=== PATIENT | male | born 1950 | race Caucasian/White ===

== ENCOUNTER → 2017-10-27 | Outpatient (REF) | payer BC, MEDICARE ==
[2017-10-27 14:29] LABS: APPEARANCE, URINE CLEAR (CLEAR); BACTERIA, URINE AUTO NEGATIVE (NEGATIVE); BILIRUBIN, URINE AUTO NEGATIVE (NEGATIVE); BLOOD, URINE BLOOD NEGATIVE (NEGATIVE); COLOR, URINE STRAW (YELLOW); GLUCOSE, URINE (UA) AUTO NEGATIVE (NEGATIVE); KETONE, URINE AUTO NEGATIVE (NEGATIVE); LEUKOCYTE ESTERASE, URINE AUTO NEGATIVE (NEGATIVE); MUCUS, URINE SMALL (NEGATIVE); NITRITE, URINE AUTO NEGATIVE (NEGATIVE); PROTEIN, URINE AUTO NEGATIVE (NEGATIVE); RBC, URINE AUTO 0 /HPF (0-3); SPECIFIC GRAVITY URINE AUTO 1.006 (1.002-1.035); SQUAMOUS EPITHELIAL CELL UR AU 0 /HPF (0-6); UROBILINOGEN, URINE AUTO 0.2 mg/dL (0.0-2.0); WBC, URINE AUTO 1 /HPF (0-3)
== END ==
LOC: M SMT 13:36
DX: N40.0 Benign prostatic hyperplasia without lower urinary tract symptoms (principal)
CPT/HCPCS: 81001

== ENCOUNTER → 2020-08-24 | Outpatient (CLI) | payer MEDICARE, BC ==
[2020-08-24 15:30] LABS: BASO % 0.5 % (0.0-1.0); EOS # 0.1 10^3/uL (0.0-0.5); EOS % 0.8 % (0.0-3.0); HEMATOCRIT 45.2 % (42.0-52.0); HEMOGLOBIN 14.9 g/dl (13.5-17.5); LYMPH # 1.4 10^3/uL (1.5-5.0); LYMPH % 21.3 % (24.0-44.0); MEAN CORPUSCULAR HEMOGLOBIN 28.1 pg (27.0-33.0); MEAN CORPUSCULAR VOLUME 85.1 fl (80.0-96.0); MONO # 0.5 10^3/uL (0.0-0.8); MONO % 8.1 % (0.0-5.0); NEUTROPHILS # 4.5 10^3/uL (1.5-8.5); PLATELET COUNT, AUTOMATED 133 10^3/uL (150-450); RED BLOOD COUNT 5.31 10^6/uL (4.30-6.10); WHITE BLOOD COUNT 6.5 10^3/uL (4.0-10.0)
[2020-08-24 15:56] LABS: ALBUMIN 3.7 GM/DL (3.2-5.2); ALT/SGPT 34 U/L (12-78); BILIRUBIN,TOTAL 0.5 MG/DL (0.2-1.0); BLOOD UREA NITROGEN 21 MG/DL (7-18); CALCIUM LEVEL 8.9 MG/DL (8.8-10.2); CARBON DIOXIDE LEVEL 29 MEQ/L (21-32); CHLORIDE LEVEL 108 MEQ/L (98-107); CREATININE FOR GFR 1.18 MG/DL (0.70-1.30); GLOMERULAR FILTRATION RATE > 60.0 (>42); GLUCOSE, FASTING 89 MG/DL (70-100); POTASSIUM SERUM 3.9 MEQ/L (3.5-5.1); SODIUM LEVEL 144 MEQ/L (136-145); TOTAL PROTEIN 7.1 GM/DL (6.4-8.2)
== END ==
LOC: M LAB 14:58
PROVIDERS: ATTEND Internal Medicine
DX: F03.90 Unspecified dementia, unspecified severity, without behavioral disturbance, psychotic disturbance, mood disturbance, and anxiety (principal)

== ENCOUNTER → 2020-11-25 | Outpatient (REF) | payer MEDICARE, BC ==
[2020-11-25 18:14] LABS: APPEARANCE, URINE CLEAR (CLEAR); BACTERIA, URINE AUTO NEGATIVE (NEGATIVE); BILIRUBIN, URINE AUTO NEGATIVE (NEGATIVE); BLOOD, URINE BLOOD NEGATIVE (NEGATIVE); COLOR, URINE YELLOW (YELLOW); GLUCOSE, URINE (UA) AUTO NEGATIVE (NEGATIVE); KETONE, URINE AUTO NEGATIVE (NEGATIVE); LEUKOCYTE ESTERASE, URINE AUTO NEGATIVE (NEGATIVE); MUCUS, URINE SMALL (NEGATIVE); NITRITE, URINE AUTO NEGATIVE (NEGATIVE); PROTEIN, URINE AUTO NEGATIVE (NEGATIVE); RBC, URINE AUTO 1 /HPF (0-3); SPECIFIC GRAVITY URINE AUTO 1.015 (1.002-1.035); SQUAMOUS EPITHELIAL CELL UR AU 0 /HPF (0-6); UROBILINOGEN, URINE AUTO 0.2 mg/dL (0.0-2.0); WBC, URINE AUTO 0 /HPF (0-3)
== END ==
LOC: M SMT 17:46
PROVIDERS: ATTEND Nurse Practitioner Family
DX: R32 Unspecified urinary incontinence (principal)
CPT/HCPCS: 51798; 81001; 87086; G0463

== ENCOUNTER → 2020-12-07 | Outpatient (CLI) | payer MEDICARE, BC ==
--- NOTE | 2020-12-07 11:51 | REP ---
INDICATION: BPH PROSTATE VOLUME. COMPARISON: None TECHNIQUE: Transvesical imaging FINDINGS: There is no significant mucosal abnormality or evidence of a urinary bladder wall mass. Doppler shows uro jet phenomena bilaterally. The prevoid urinary bladder volume calculation is 232.7 cc. No postvoid urinary bladder volume calculation was obtained by the technologist. The technologist measured the prostate gland transvesically and came up with 2.6 x 2.8 x 2.3 cm IMPRESSION: As above <Electronically signed by Dilan Shellye > 12/07/20 [id number]
== END ==
LOC: M RAD 11:06
PROVIDERS: ATTEND Nurse Practitioner Family
DX: N40.0 Benign prostatic hyperplasia without lower urinary tract symptoms (principal)

== ENCOUNTER → 2021-01-18 | Outpatient (CLI) | payer MEDICARE, BC ==
--- NOTE | 2021-01-18 10:24 | REPVR ---
PROCEDURE INFORMATION: Exam: CT Head Without Contrast Exam date and time: 01/18/2021 9:31 AM Age: 70 years old Clinical indication: Altered mental status/memory loss; Additional info: Dementia TECHNIQUE: Imaging protocol: Computed tomography of the head without contrast. Radiation optimization: All CT scans at this facility use at least one of these dose optimization techniques: automated exposure control; mA and/or kV adjustment per patient size (includes targeted exams where dose is matched to clinical indication); or iterative reconstruction. COMPARISON: No relevant prior studies available. FINDINGS: Brain: There is no acute intracranial hemorrhage or mass effect. Mild diffuse volume loss is within the range of normal for patient age. There are small vessel ischemic changes within the periventricular and subcortical white matter, but the normal may/white matter delineation is maintained. Cerebral ventricles: No ventriculomegaly. Paranasal sinuses: Visualized sinuses are unremarkable. No fluid levels. Mastoid air cells: Visualized mastoid air cells are well aerated. Bones/joints: Unremarkable. No acute fracture. Soft tissues: Unremarkable. IMPRESSION: No acute hemorrhage or edema. Electronically signed by: Yola Mendoza On 01/18/2021 10:24:11 AM
== END ==
LOC: M RAD 09:09
DX: F03.90 Unspecified dementia, unspecified severity, without behavioral disturbance, psychotic disturbance, mood disturbance, and anxiety (principal)

== ENCOUNTER 2022-05-17 16:53 | Inpatient (IN) | payer MEDICARE, BC ==
[~2022-05-17] VITALS: Ht 170.2 cm; Wt 75.3 kg
[2022-05-17] MEDS: DONEPEZIL 5 MG TAB PO SCH (03:40)
[2022-05-17] MEDS ORDERED: FINA5TAB2 PO (17:14)
[2022-05-17] MEDS ORDERED: TAMS1CAP17 PO (17:14)
[2022-05-17] MEDS ORDERED: DONE10TA90 PO (17:14)
[2022-05-17] MEDS ORDERED: MEMA28CA12 PO (17:14)
[2022-05-17] MEDS ORDERED: MYRB50TA PO (17:14)
[2022-05-17] MEDS ORDERED: ZOLO50TA PO (17:14)
[2022-05-17 17:56] LABS: BASO % 0.3 % (0.0-1.0); EOS % 0.5 % (0.0-3.0); HEMOGLOBIN 12.8 g/dl (13.5-17.5); LYMPH # 1.1 10^3/uL (1.5-5.0); LYMPH % 12.4 % (24.0-44.0); MEAN CORPUSCULAR HEMOGLOBIN 28.6 pg (27.0-33.0); MEAN CORPUSCULAR HGB CONC 32.8 g/dl (32.0-36.5); MEAN CORPUSCULAR VOLUME 87.2 fl (80.0-96.0); MONO # 0.6 10^3/uL (0.0-0.8); MONO % 7.2 % (2.0-8.0); NEUTROPHILS # 6.8 10^3/uL (1.5-8.5); NEUTROPHILS % 78.3 % (36.0-66.0); PLATELET COUNT, AUTOMATED 200 10^3/uL (150-450); RED BLOOD COUNT 4.47 10^6/uL (4.30-6.10); WHITE BLOOD COUNT 8.6 10^3/uL (4.0-10.0)
[2022-05-17 18:11] LABS: VENOUS BASE EXCESS 3.2 (-2.0-2.0); VENOUS HCO3 29.3 MEQ/L (23.0-27.0); VENOUS PARTIAL PRESSURE CO2 50.5 mmHg (38.0-50.0); VENOUS PARTIAL PRESSURE O2 36.8 mmHg (30.0-50.0); VENOUS PH 7.382 UNITS (7.330-7.430); VENOUS STANDARD HCO3 26.6 MEQ/L; VENOUS TOTAL CO2 30.9 MEQ/L (24.0-28.0)
[2022-05-17 18:33] LABS: ALBUMIN 2.8 GM/DL (3.2-5.2); ALT/SGPT 78 U/L (12-78); BILIRUBIN,DIRECT 0.2 MG/DL (0.0-0.2); BILIRUBIN,TOTAL 0.5 MG/DL (0.2-1.0); BLOOD UREA NITROGEN 19 MG/DL (7-18); CALCIUM LEVEL 8.6 MG/DL (8.8-10.2); CARBON DIOXIDE LEVEL 30 MEQ/L (21-32); CHLORIDE LEVEL 107 MEQ/L (98-107); CREATININE FOR GFR 1.02 MG/DL (0.70-1.30); GLOMERULAR FILTRATION RATE > 60.0 (>42); GLUCOSE, FASTING 105 MG/DL (70-100); POTASSIUM SERUM 3.9 MEQ/L (3.5-5.1); SODIUM LEVEL 143 MEQ/L (136-145); TOTAL PROTEIN 6.3 GM/DL (6.4-8.2)
[2022-05-17 19:29] LABS: OSMOLALITY SERUM 301 MOSM/KG (280-301)
[2022-05-17] MEDS ORDERED: VITA100093 PO (20:04)
[2022-05-17] MEDS ORDERED: ZOLO100T PO (20:04)
[2022-05-17] MEDS ORDERED: HOME MED LIST COMPLETE! XX SCH (20:10)
[2022-05-17 20:16] LABS: ACETAMINOPHEN LEVEL < 2.0 UG/ML (10.0-30.0); ETHYL ALCOHOL (ETHANOL) < 0.003 % (0.000-0.010); SALICYLATE LEVEL < 1.7 MG/DL (5.0-30.0)
[2022-05-17 20:27] LABS: AMPHETAMINES LEVEL URINE NEGATIVE (NEGATIVE); BARBITURATES URINE NEGATIVE (NEGATIVE); BENZODIAZEPINES URINE NEGATIVE (NEGATIVE); CANNABINOIDS URINE NEGATIVE (NEGATIVE); COCAINE METABOLITE URINE NEGATIVE (NEGATIVE); METHADONE URINE NEGATIVE (NEGATIVE); OPIATES URINE NEGATIVE (NEGATIVE); PHENCYCLIDINE URINE NEGATIVE (NEGATIVE)
[2022-05-17 20:37] LABS: RSV AMPLIFICATION NEGATIVE (NEGATIVE)
[2022-05-18] MEDS: SERTRALINE 100 MG TAB PO SCH ×2 (04:11→21:32)
[2022-05-18] MEDS: TAMSULOSIN 0.4 MG CAP PO SCH ×2 (04:11→21:31)
[2022-05-18 08:18] LABS: HEMATOCRIT 39.9 % (42.0-52.0); HEMOGLOBIN 12.8 g/dl (13.5-17.5); MEAN CORPUSCULAR HEMOGLOBIN 27.9 pg (27.0-33.0); MEAN CORPUSCULAR HGB CONC 32.1 g/dl (32.0-36.5); MEAN CORPUSCULAR VOLUME 86.9 fl (80.0-96.0); PLATELET COUNT, AUTOMATED 194 10^3/uL (150-450); RED BLOOD COUNT 4.59 10^6/uL (4.30-6.10); WHITE BLOOD COUNT 7.5 10^3/uL (4.0-10.0)
[2022-05-18 08:57] LABS: ALBUMIN 2.7 GM/DL (3.2-5.2); ALT/SGPT 70 U/L (12-78); BILIRUBIN,TOTAL 0.7 MG/DL (0.2-1.0); BLOOD UREA NITROGEN 14 MG/DL (7-18); CARBON DIOXIDE LEVEL 28 MEQ/L (21-32); CHLORIDE LEVEL 105 MEQ/L (98-107); CREATININE FOR GFR 0.83 MG/DL (0.70-1.30); GLOMERULAR FILTRATION RATE > 60.0 (>42); GLUCOSE, FASTING 105 MG/DL (70-100); POTASSIUM SERUM 3.8 MEQ/L (3.5-5.1); SODIUM LEVEL 140 MEQ/L (136-145); TOTAL PROTEIN 6.3 GM/DL (6.4-8.2)
[2022-05-18] MEDS: MEMANTINE 5MG TABLET (NAMENDA) PO SCH ×2 (09:00→21:32)
[2022-05-18 16:00] VITALS: BP 132/76
[2022-05-18] MEDS: RAMELTEON 8 MG TAB (ROZEREM) PO PRN (21:31)
[2022-05-18] MEDS: oxyBUTYnin *DITROPAN XL* 5 MG TABCR PO SCH (21:31)
[2022-05-18] MEDS: VITAMIN D 1,000 INTERNATIONAL UNITS TABLET PO SCH (21:32)
[2022-05-18] MEDS: DONEPEZIL 5 MG TAB PO SCH (21:32)
[2022-05-18] MEDS: FINASTERIDE 5MG TAB PO SCH (21:32)
[2022-05-19 06:00] VITALS: BP 131/70
[2022-05-19 06:56] LABS: BASO % 0.4 % (0.0-1.0); EOS # 0.1 10^3/uL (0.0-0.5); EOS % 0.8 % (0.0-3.0); HEMATOCRIT 37.1 % (42.0-52.0); LYMPH # 1.3 10^3/uL (1.5-5.0); LYMPH % 16.3 % (24.0-44.0); MEAN CORPUSCULAR HEMOGLOBIN 28.3 pg (27.0-33.0); MEAN CORPUSCULAR HGB CONC 32.3 g/dl (32.0-36.5); MEAN CORPUSCULAR VOLUME 87.5 fl (80.0-96.0); MONO # 0.5 10^3/uL (0.0-0.8); MONO % 6.4 % (2.0-8.0); NEUTROPHILS % 74.8 % (36.0-66.0); PLATELET COUNT, AUTOMATED 194 10^3/uL (150-450); RED BLOOD COUNT 4.24 10^6/uL (4.30-6.10)
[2022-05-19 07:38] LABS: BLOOD UREA NITROGEN 16 MG/DL (7-18); CALCIUM LEVEL 8.5 MG/DL (8.8-10.2); CARBON DIOXIDE LEVEL 30 MEQ/L (21-32); CHLORIDE LEVEL 106 MEQ/L (98-107); CREATININE FOR GFR 1.02 MG/DL (0.70-1.30); GLOMERULAR FILTRATION RATE > 60.0 (>42); GLUCOSE, FASTING 106 MG/DL (70-100); SODIUM LEVEL 141 MEQ/L (136-145)
[2022-05-19] MEDS: MEMANTINE 5MG TABLET (NAMENDA) PO SCH ×2 (09:08→20:47)
[2022-05-19] MEDS: RAMELTEON 8 MG TAB (ROZEREM) PO PRN (20:47)
[2022-05-19] MEDS: oxyBUTYnin *DITROPAN XL* 5 MG TABCR PO SCH (20:47)
[2022-05-19] MEDS: DONEPEZIL 5 MG TAB PO SCH (20:47)
[2022-05-19] MEDS: SERTRALINE 100 MG TAB PO SCH (20:48)
[2022-05-19] MEDS: TAMSULOSIN 0.4 MG CAP PO SCH (20:48)
[2022-05-19] MEDS: VITAMIN D 1,000 INTERNATIONAL UNITS TABLET PO SCH (20:48)
[2022-05-19] MEDS: FINASTERIDE 5MG TAB PO SCH (20:48)
[2022-05-19 22:00] VITALS: BP 133/70
[2022-05-20 06:00] VITALS: BP 131/74
[2022-05-20] MEDS: MEMANTINE 5MG TABLET (NAMENDA) PO SCH ×2 (08:33→20:28)
[2022-05-20] MEDS: DONEPEZIL 5 MG TAB PO SCH (20:28)
[2022-05-20] MEDS: FINASTERIDE 5MG TAB PO SCH (20:28)
[2022-05-20] MEDS: RAMELTEON 8 MG TAB (ROZEREM) PO PRN (20:28)
[2022-05-20] MEDS: TAMSULOSIN 0.4 MG CAP PO SCH (20:28)
[2022-05-20] MEDS: SERTRALINE 100 MG TAB PO SCH (20:28)
[2022-05-20] MEDS: VITAMIN D 1,000 INTERNATIONAL UNITS TABLET PO SCH (20:29)
[2022-05-20] MEDS: oxyBUTYnin *DITROPAN XL* 5 MG TABCR PO SCH (20:29)
[2022-05-20 21:25] VITALS: BP 142/72
[2022-05-21] MEDS ORDERED: PILL CUTTER 1 EACH XX PRN (01:40)
[2022-05-21] MEDS ORDERED: risperiDONE 0.5 MG TAB PO ONE (02:00)
[2022-05-21] MEDS: ACETAMINOPHEN TAB 650MG DOSE (2X325MG) PO PRN ×3 (03:00→20:31)
[2022-05-21 06:00] VITALS: BP 139/72
[2022-05-21] MEDS: MEMANTINE 5MG TABLET (NAMENDA) PO SCH ×2 (09:22→20:30)
[2022-05-21 15:26] VITALS: BP 141/74
[2022-05-21] MEDS: RAMELTEON 8 MG TAB (ROZEREM) PO PRN (20:30)
[2022-05-21] MEDS: DONEPEZIL 5 MG TAB PO SCH (20:30)
[2022-05-21] MEDS: SERTRALINE 100 MG TAB PO SCH (20:30)
[2022-05-21] MEDS: FINASTERIDE 5MG TAB PO SCH (20:30)
[2022-05-21] MEDS: TAMSULOSIN 0.4 MG CAP PO SCH (20:31)
[2022-05-21] MEDS: oxyBUTYnin *DITROPAN XL* 5 MG TABCR PO SCH (20:31)
[2022-05-21] MEDS: VITAMIN D 1,000 INTERNATIONAL UNITS TABLET PO SCH (20:31)
[2022-05-21 22:00] VITALS: BP 141/72
[2022-05-22 02:00] VITALS: BP 137/70
[2022-05-22] MEDS ORDERED: risperiDONE 0.5 MG TAB PO ONE (02:00)
[2022-05-22 06:00] VITALS: BP 121/77
[2022-05-22] MEDS: ACETAMINOPHEN TAB 650MG DOSE (2X325MG) PO PRN (06:56)
[2022-05-22] MEDS: MEMANTINE 5MG TABLET (NAMENDA) PO SCH ×2 (09:24→20:54)
[2022-05-22] MEDS: MIRALAX *UNIT DOSE* 17GM PACKET PO PRN ×2 (09:25→20:55)
[2022-05-22] MEDS: DOCUSATE SODIUM 100MG CAPSULE PO PRN ×2 (11:28→20:54)
[2022-05-22] MEDS: SENOKOT S TAB PO PRN ×2 (11:28→20:55)
[2022-05-22] MEDS: RAMELTEON 8 MG TAB (ROZEREM) PO PRN (20:54)
[2022-05-22] MEDS: DONEPEZIL 5 MG TAB PO SCH (20:54)
[2022-05-22] MEDS: SERTRALINE 100 MG TAB PO SCH (20:54)
[2022-05-22] MEDS: oxyBUTYnin *DITROPAN XL* 5 MG TABCR PO SCH (20:55)
[2022-05-22] MEDS: TAMSULOSIN 0.4 MG CAP PO SCH (20:55)
[2022-05-22] MEDS: FINASTERIDE 5MG TAB PO SCH (20:55)
[2022-05-22] MEDS: VITAMIN D 1,000 INTERNATIONAL UNITS TABLET PO SCH (20:55)
[2022-05-23 05:56] VITALS: BP 120/75
[2022-05-23] MEDS: MEMANTINE 5MG TABLET (NAMENDA) PO SCH ×2 (08:13→20:06)
[2022-05-23] MEDS: DONEPEZIL 5 MG TAB PO SCH (20:06)
[2022-05-23] MEDS: oxyBUTYnin *DITROPAN XL* 5 MG TABCR PO SCH (20:06)
[2022-05-23] MEDS: TAMSULOSIN 0.4 MG CAP PO SCH (20:06)
[2022-05-23] MEDS: SERTRALINE 100 MG TAB PO SCH (20:06)
[2022-05-23] MEDS: FINASTERIDE 5MG TAB PO SCH (20:06)
[2022-05-23] MEDS: VITAMIN D 1,000 INTERNATIONAL UNITS TABLET PO SCH (20:06)
[2022-05-23] MEDS: ACETAMINOPHEN TAB 650MG DOSE (2X325MG) PO PRN (20:09)
[2022-05-23] MEDS: RAMELTEON 8 MG TAB (ROZEREM) PO PRN (20:09)
[2022-05-24 00:55] VITALS: BP 143/71
[2022-05-24] MEDS: MEMANTINE 5MG TABLET (NAMENDA) PO SCH ×2 (07:46→20:12)
[2022-05-24] MEDS: ACETAMINOPHEN TAB 650MG DOSE (2X325MG) PO PRN ×2 (10:10→18:30)
[2022-05-24] MEDS: RAMELTEON 8 MG TAB (ROZEREM) PO PRN (20:12)
[2022-05-24] MEDS: FINASTERIDE 5MG TAB PO SCH (20:12)
[2022-05-24] MEDS: VITAMIN D 1,000 INTERNATIONAL UNITS TABLET PO SCH (20:12)
[2022-05-24] MEDS: DONEPEZIL 5 MG TAB PO SCH (20:13)
[2022-05-24] MEDS: TAMSULOSIN 0.4 MG CAP PO SCH (20:13)
[2022-05-24] MEDS: oxyBUTYnin *DITROPAN XL* 5 MG TABCR PO SCH (20:13)
[2022-05-24] MEDS: SERTRALINE 100 MG TAB PO SCH (20:13)
[2022-05-25 00:56] VITALS: BP 133/55
[2022-05-25] MEDS: ACETAMINOPHEN TAB 650MG DOSE (2X325MG) PO PRN ×3 (04:01→20:37)
[2022-05-25] MEDS: MEMANTINE 5MG TABLET (NAMENDA) PO SCH ×2 (08:21→20:37)
[2022-05-25 08:30] VITALS: BP 125/67
[2022-05-25] MEDS: VITAMIN D 1,000 INTERNATIONAL UNITS TABLET PO SCH (20:36)
[2022-05-25] MEDS: DONEPEZIL 5 MG TAB PO SCH (20:36)
[2022-05-25] MEDS: FINASTERIDE 5MG TAB PO SCH (20:36)
[2022-05-25] MEDS: TAMSULOSIN 0.4 MG CAP PO SCH (20:37)
[2022-05-25] MEDS: oxyBUTYnin *DITROPAN XL* 5 MG TABCR PO SCH (20:37)
[2022-05-25] MEDS: RAMELTEON 8 MG TAB (ROZEREM) PO PRN (20:37)
[2022-05-25] MEDS: SERTRALINE 100 MG TAB PO SCH (20:37)
[2022-05-25] MEDS: SENOKOT S TAB PO PRN (20:39)
[2022-05-25] MEDS: DOCUSATE SODIUM 100MG CAPSULE PO PRN (20:39)
[2022-05-25] MEDS ORDERED: QUEtiapine FUMARATE 12.5 MG HALF-TAB PO ONE (22:35)
[2022-05-26] MEDS: ACETAMINOPHEN TAB 650MG DOSE (2X325MG) PO PRN (03:00)
[2022-05-26 05:40] VITALS: BP 135/68
[2022-05-26] MEDS: MEMANTINE 5MG TABLET (NAMENDA) PO SCH ×2 (07:52→20:32)
[2022-05-26 08:35] VITALS: BP 112/58
[2022-05-26 13:33] VITALS: BP 112/62
[2022-05-26] MEDS: oxyBUTYnin *DITROPAN XL* 5 MG TABCR PO SCH (20:31)
[2022-05-26] MEDS: VITAMIN D 1,000 INTERNATIONAL UNITS TABLET PO SCH (20:31)
[2022-05-26] MEDS: FINASTERIDE 5MG TAB PO SCH (20:31)
[2022-05-26] MEDS: TAMSULOSIN 0.4 MG CAP PO SCH (20:32)
[2022-05-26] MEDS: SERTRALINE 100 MG TAB PO SCH (20:32)
[2022-05-26] MEDS: DONEPEZIL 5 MG TAB PO SCH (20:32)
[2022-05-27 05:24] VITALS: BP 115/55
[2022-05-27] MEDS: MEMANTINE 5MG TABLET (NAMENDA) PO SCH ×2 (09:28→20:18)
[2022-05-27] MEDS: DONEPEZIL 5 MG TAB PO SCH (20:18)
[2022-05-27] MEDS: SERTRALINE 100 MG TAB PO SCH (20:19)
[2022-05-27] MEDS: RAMELTEON 8 MG TAB (ROZEREM) PO PRN (20:19)
[2022-05-27] MEDS: FINASTERIDE 5MG TAB PO SCH (20:19)
[2022-05-27] MEDS: TAMSULOSIN 0.4 MG CAP PO SCH (20:19)
[2022-05-27] MEDS: oxyBUTYnin *DITROPAN XL* 5 MG TABCR PO SCH (20:19)
[2022-05-27] MEDS: VITAMIN D 1,000 INTERNATIONAL UNITS TABLET PO SCH (20:19)
[2022-05-28 06:00] VITALS: BP 116/57
[2022-05-28] MEDS: MEMANTINE 5MG TABLET (NAMENDA) PO SCH ×2 (08:56→21:19)
[2022-05-28] MEDS: FINASTERIDE 5MG TAB PO SCH (21:18)
[2022-05-28] MEDS: VITAMIN D 1,000 INTERNATIONAL UNITS TABLET PO SCH (21:18)
[2022-05-28] MEDS: SERTRALINE 100 MG TAB PO SCH (21:18)
[2022-05-28] MEDS: oxyBUTYnin *DITROPAN XL* 5 MG TABCR PO SCH (21:18)
[2022-05-28] MEDS: TAMSULOSIN 0.4 MG CAP PO SCH (21:19)
[2022-05-28] MEDS: RAMELTEON 8 MG TAB (ROZEREM) PO PRN (21:19)
[2022-05-28] MEDS: DONEPEZIL 5 MG TAB PO SCH (21:19)
[2022-05-29 06:00] VITALS: BP 138/73
[2022-05-29] MEDS: MEMANTINE 5MG TABLET (NAMENDA) PO SCH ×2 (09:49→20:55)
[2022-05-29] MEDS: TAMSULOSIN 0.4 MG CAP PO SCH (20:55)
[2022-05-29] MEDS: FINASTERIDE 5MG TAB PO SCH (20:55)
[2022-05-29] MEDS: SERTRALINE 100 MG TAB PO SCH (20:55)
[2022-05-29] MEDS: oxyBUTYnin *DITROPAN XL* 5 MG TABCR PO SCH (20:55)
[2022-05-29] MEDS: VITAMIN D 1,000 INTERNATIONAL UNITS TABLET PO SCH (20:55)
[2022-05-29] MEDS: DONEPEZIL 5 MG TAB PO SCH (20:55)
[2022-05-29] MEDS: RAMELTEON 8 MG TAB (ROZEREM) PO PRN (20:56)
[2022-05-30 06:00] VITALS: BP 115/60
[2022-05-30] MEDS: MEMANTINE 5MG TABLET (NAMENDA) PO SCH ×2 (08:30→20:08)
[2022-05-30] MEDS ORDERED: ZOLO100T PO (14:36)
[2022-05-30] MEDS ORDERED: DONE10TA90 PO (14:36)
[2022-05-30] MEDS ORDERED: FINA5TAB2 PO (14:36)
[2022-05-30] MEDS ORDERED: TAMS1CAP17 PO (14:36)
[2022-05-30] MEDS ORDERED: COLA100C5 PO (14:36)
[2022-05-30] MEDS ORDERED: RAME8TAB2 PO (14:36)
[2022-05-30] MEDS ORDERED: MEMA1TAB3 PO (14:36)
[2022-05-30] MEDS ORDERED: MYRB50TA PO (14:36)
[2022-05-30] MEDS: FINASTERIDE 5MG TAB PO SCH (20:08)
[2022-05-30] MEDS: SERTRALINE 100 MG TAB PO SCH (20:08)
[2022-05-30] MEDS: TAMSULOSIN 0.4 MG CAP PO SCH (20:08)
[2022-05-30] MEDS: DONEPEZIL 5 MG TAB PO SCH (20:08)
[2022-05-30] MEDS: RAMELTEON 8 MG TAB (ROZEREM) PO PRN (20:08)
[2022-05-30] MEDS: oxyBUTYnin *DITROPAN XL* 5 MG TABCR PO SCH (20:08)
[2022-05-30] MEDS: VITAMIN D 1,000 INTERNATIONAL UNITS TABLET PO SCH (20:08)
[2022-05-31] MEDS: ACETAMINOPHEN TAB 650MG DOSE (2X325MG) PO PRN (02:36)
[2022-05-31] MEDS ORDERED: QUEtiapine FUMARATE 12.5 MG HALF-TAB PO ONE (04:00)
[2022-05-31 05:33] VITALS: BP 115/59
[2022-05-31] MEDS ORDERED: DITR5TAB PO (08:27)
[2022-05-31] MEDS: MEMANTINE 5MG TABLET (NAMENDA) PO SCH (09:31)
== END 2022-05-31 10:30 | DRG 884 ==
LOC: EDBD 16:53 → M ED 16:53 → M ED INP 21:55 → ENRESERV 05-18 14:26 → M MS5PR 05-18 15:45
PROVIDERS: ADMIT Internal Medicine; ATTEND Internal Medicine Nephrology
DX: F03.90 Unspecified dementia, unspecified severity, without behavioral disturbance, psychotic disturbance, mood disturbance, and anxiety (principal); E78.5 Hyperlipidemia, unspecified; E55.9 Vitamin D deficiency, unspecified; N40.1 Benign prostatic hyperplasia with lower urinary tract symptoms; N13.9 Obstructive and reflux uropathy, unspecified; S00.83XA Contusion of other part of head, initial encounter; W06.XXXA Fall from bed, initial encounter; Y92.230 Patient room in hospital as the place of occurrence of the external cause; Y93.89 Activity, other specified; Y99.8 Other external cause status; Z74.1 Need for assistance with personal care; Z79.899 Other long term (current) drug therapy; Z87.891 Personal history of nicotine dependence; Z60.2 Problems related to living alone